=== PATIENT | female | born 1930 | race Caucasian/White ===

== ENCOUNTER → 2016-11-30 | Outpatient (CLI) | payer OTHER, BC ==
[~2016-11-30] MED LIST: ANAS1TAB19 PO; CALC-279 PO; DILT300C29 PO; DVN80125 PO; PRAVASTATIN PO; PRLSR20 PO; Paroxetine PO; VITAMIN D3 PO; lorazepam PO
[2016-11-30 13:17] LABS: BLOOD UREA NITROGEN 14 mg/dl (7-18); BUN/CREATININE RATIO 14.9 (10-20); CARBON DIOXIDE 27 mmol/L (21-32); CHLORIDE 102 mmol/L (98-107); CREATININE 0.96 mg/dl (0.60-1.20); GLUCOSE 130 mg/dl (70-99); POTASSIUM 3.6 mmol/L (3.5-5.1); SODIUM 140 mmol/L (136-145)
[2016-11-30 15:35] LABS: CHOLESTEROL/HDL RATIO 5.8
== END | disposition home or self-care (01) ==
LOC: C.LABMFLN 08:02
PROVIDERS: ATTEND Family Medicine
DX: E78.00 Pure hypercholesterolemia, unspecified (principal); R33.9 Retention of urine, unspecified

== ENCOUNTER → 2017-05-14 | Outpatient (CLI) | payer OTHER ==
[2017-05-14 13:21] LABS: BASO % 0.7 %; BASO ABS # 0.06 K/uL (0-0.2); COMPLETE YES; EOS % 4.7 %; HEMATOCRIT 43.8 % (37-47); IG% 0.2 %; LYMPH % 24.2 %; LYMPH ABS # 1.94 K/uL (1.2-3.4); MEAN CELL VOLUME 85.5 fL (80-100); MEAN CORPUSCULAR HEMOGLOBIN 29.3 pg (25-34); MEAN CORPUSCULAR HGB CONC 34.2 g/dl (32-36); MEAN PLATELET VOLUME 9.4 fL (7.4-10.4); MONO % 11.6 %; NEUT % 58.6 %; PLATELET COUNT 271 K/uL (130-400); RED BLOOD COUNT 5.12 M/uL (4.2-5.4); WHITE BLOOD COUNT 8.01 K/uL (4.8-10.8)
[2017-05-14 13:32] LABS: ALT/SGPT 18 U/L (12-78); AST/SGOT 12 U/L (15-37); BLOOD UREA NITROGEN 14 mg/dl (7-18); BUN/CREATININE RATIO 15.6 (10-20); CARBON DIOXIDE 28 mmol/L (21-32); CHLORIDE 101 mmol/L (98-107); CREATININE 0.87 mg/dl (0.60-1.20); GLUCOSE 132 mg/dl (70-99); POTASSIUM 3.7 mmol/L (3.5-5.1); SODIUM 138 mmol/L (136-145)
[2017-05-14 13:35] LABS: ALB/GLOB RATIO 0.9 (0.9-2); ALKALINE PHOSPHATASE 57 U/L (45-117)
== END | disposition home or self-care (01) ==
LOC: C.LABMFLN 08:36
PROVIDERS: ATTEND Nurse Practitioner Family
DX: C50.112 Malignant neoplasm of central portion of left female breast (principal)

== ENCOUNTER → 2017-11-19 | Outpatient (CLI) | payer OTHER ==
[2017-11-19 12:41] LABS: BASO % 1.2 %; BASO ABS # 0.08 K/uL (0-0.2); COMPLETE YES; EOS % 5.5 %; EOS ABS # 0.36 K/uL (0-0.5); HEMATOCRIT 43.2 % (37-47); HEMOGLOBIN 14.6 g/dL (12.0-16.0); IG# 0.02 K/uL (0.00-0.02); IG% 0.3 %; LYMPH % 29.9 %; LYMPH ABS # 1.94 K/uL (1.2-3.4); MEAN CELL VOLUME 88.5 fL (80-100); MEAN CORPUSCULAR HEMOGLOBIN 29.9 pg (25-34); MEAN CORPUSCULAR HGB CONC 33.8 g/dl (32-36); MEAN PLATELET VOLUME 10.1 fL (7.4-10.4); MONO % 11.7 %; MONO ABS # 0.76 K/uL (0.11-0.59); NEUT % 51.4 %; NEUT ABS # 3.33 K/uL (1.4-6.5); PLATELET COUNT 248 K/uL (130-400); RED BLOOD COUNT 4.88 M/uL (4.2-5.4); RED CELL DISTRIBUTION WIDTH CV 13.7 % (11.5-14.5); RED CELL DISTRIBUTION WIDTH SD 44.7 fL (36.4-46.3); WHITE BLOOD COUNT 6.49 K/uL (4.8-10.8)
[2017-11-19 12:58] LABS: LDH** 156 U/L (84-246)
[2017-11-19 13:12] LABS: GLUCOSE 121 mg/dl (70-99)
[2017-11-19 13:12] LABS: ALBUMIN 3.8 gm/dl (3.4-5.0); AST/SGOT 17 U/L (15-37); BLOOD UREA NITROGEN 13 mg/dl (7-18); BUN/CREATININE RATIO 14.5 (10-20); CALCIUM 9.5 mg/dl (8.5-10.1); CARBON DIOXIDE 28 mmol/L (21-32); CHLORIDE 102 mmol/L (98-107); CREATININE 0.88 mg/dl (0.60-1.20); EstGFR CKD-E AfrAm 69.9; EstGFR CKD-E NON AfrAm 60.3; POTASSIUM 3.5 mmol/L (3.5-5.1); SODIUM 136 mmol/L (136-145)
[2017-11-19 13:14] LABS: ALB/GLOB RATIO 0.9 (0.9-2); ALKALINE PHOSPHATASE 51 U/L (45-117); ALT/SGPT 21 U/L (12-78)
== END | disposition home or self-care (01) ==
LOC: C.LABMFLN 08:13
DX: C50.112 Malignant neoplasm of central portion of left female breast (principal)

== ENCOUNTER → 2018-01-10 | Outpatient (CLI) | payer OTHER ==
[2018-01-10 16:17] LABS: ALT/SGPT 21 U/L (12-78); CHOLESTEROL 162 mg/dl (0-200); LDL CHOLESTEROL (DIRECT) 116 mg/dl
== END | disposition home or self-care (01) ==
LOC: C.LABMFLN 09:16
PROVIDERS: ATTEND Family Medicine
DX: E78.00 Pure hypercholesterolemia, unspecified (principal)

== ENCOUNTER 2020-08-20 09:23 | Inpatient (IN) ==
--- NOTE | 2020-08-09 14:59 | PAT Medication Instructions ---
Medication Instructions Date of Service August 09, 2020 Home Medications Medication Instructions Recorded miscellaneous medical supply #4 ea 06/08/19 cholecalciferol (vitamin D3) 50 2,000 unit PO QAM #90 cap 07/13/19 mcg (2,000 unit) capsule anastrozole 1 mg tablet 1 mg PO HS #90 tab 01/15/20 diltiazem HCl 300 mg 300 mg PO QAM #90 cap 04/23/20 capsule,extended release 24 hr lorazepam 0.5 mg tablet 0.5 mg PO BID PRN #60 tab 06/13/20 breast prosthesis left #1 ea 06/17/20 miscellaneous medical supply 1 ea MISCELLANEOUS ONCE #1 ea 06/17/20 atorvastatin 10 mg tablet 10 mg PO QAM #90 tab 08/09/20 cholecalciferol (vitamin D3) 50 mcg (2,000 unit) capsule 2,000 unit PO QAM anastrozole 1 mg tablet 1 mg PO HS diltiazem HCl 300 mg capsule,extended release 24 hr 300 mg PO QAM lorazepam 0.5 mg tablet 0.5 mg PO BID PRN omeprazole 20 mg PO QAM paroxetine HCl 10 mg PO QPM valsartan 40 mg PO QAM atorvastatin 10 mg tablet 10 mg PO QAM ASK your prescriber and surgeon anastrozole 1 mg tablet 1 mg PO HS DO NOT take the morning of surgery cholecalciferol (vitamin D3) 50 mcg (2,000 unit) capsule 2,000 unit PO QAM valsartan 40 mg PO QAM Take morning of surgery With a small sip of water, OTHERWISE NOTHING TO EAT OR DRINK AFTER MIDNIGHT: diltiazem HCl 300 mg capsule,extended release 24 hr 300 mg PO QAM lorazepam 0.5 mg tablet 0.5 mg PO BID PRN (if needed) omeprazole 20 mg PO QAM Take evening before surgery lorazepam 0.5 mg tablet 0.5 mg PO BID PRN (if needed) paroxetine HCl 10 mg PO QPM Other Notes If you have any questions please call us at [phone] or [phone] or [phone] or [phone]
--- NOTE | 2020-08-14 13:39 | Anesthesiology Consultation ---
Date of Service August 14, 2020 Assessment & Plan (1) Encounter for pre-operative examination: - Per assessment on negative: Travel screen negative. No known COVID-19 positive contacts or current COVID-19 related symptoms. Surgeon arranging preop COVID testing (done 08/[address] Florence's office). Awaiting results. - Vascular office visit: 08/06/20: "Patient does appear to have significant claudication in the right hip and thigh, consistent with her CTA findings of right common iliac artery severe stenosis and common femoral artery stenosis.. She does not have rest pain, discoloration, or ulcerations of her feet or toes.. recommends that patient consider undergoing a right common femoral artery endarterectomy, as well as bilateral common iliac artery stenting in the operating room." - LUE limb restriction: s/p left mastectomy - Shellfish allergy: Patient states that Dr. Florence if having patient do prednisone/benadryl pretreatment prior to surgery d/t hx shellfish allergy. - Preop EKG: SB with marked sinus arrhythmia with first degree AVB with junctional escape complexes at 47bpm, LAD, iRBBB, NS TWA. Asymptomatic. Not on beta tonia. Case reviewed with Dr. Joiner. He feels that nothing further needed prior to surgery. To monitor vitals perioperatively as directed by anesthesiologist discretion AM DOS. Chart Review Chart Review: Acceptable Risk for Surgery (pending evaluation AM DOS) and Patient seen in Pre Admission Testing Teaching & Discussion Pre-Anesthesia Teaching/Discussion Notes: Instructed NPO after midnight before surgery,except medications with 15 cc of water. Medication instructions provided according to the PAT guidelines. History Surgery Operation Date: 08/20/20 07:30 Proposed Procedures p Right Common Femoral Endarterectomy and Bilateral Iliac Artery Stenting, Possible Femoral to Femoral Bypass - Js Florence MD Height/Weight Height: 5 ft 1 in Weight: 63.8 kg Allergies Allergy/AdvReac Type Severity Reaction Status Date / Time Sulfa (Sulfonamide Allergy Intermediate Rash Verified 08/07/20 13:49 Antibiotics) shellfish derived Allergy Unknown Hives Verified 08/07/20 13:49 cod Allergy Unknown Uncoded 08/07/20 13:49 Medications Home Medications Medication Instructions Recorded Confirmed Last Taken miscellaneous medical supply #4 ea 06/08/19 07/31/20 Unknown cholecalciferol (vitamin D3) 50 2,000 unit PO QAM #90 cap 07/13/19 08/07/20 Unknown mcg (2,000 unit) capsule anastrozole 1 mg tablet 1 mg PO HS #90 tab 01/15/20 08/07/20 Unknown diltiazem HCl 300 mg 300 mg PO QAM #90 cap 04/23/20 08/07/20 Unknown capsule,extended release 24 hr lorazepam 0.5 mg tablet 0.5 mg PO BID PRN #60 tab 06/13/20 08/07/20 Unknown breast prosthesis left #1 ea 06/17/20 07/31/20 Unknown miscellaneous medical supply 1 ea MISCELLANEOUS ONCE #1 ea 06/17/20 08/07/20 Unknown omeprazole 20 mg PO QAM 08/07/20 08/07/20 Unknown paroxetine HCl 10 mg PO QPM 08/07/20 08/07/20 Unknown valsartan 40 mg PO QAM 08/07/20 08/07/20 Unknown atorvastatin 10 mg tablet 10 mg PO QAM #90 tab 08/09/20 Unknown Past Medical History Medical History Anxiety Degenerative disc disease GERD (gastroesophageal reflux disease) Hearing deficit right ear deafness History of thyroid nodule Hx of breast cancer 2013 s/p left mastectomy, on Armidex Hyperlipidemia Hypertension PAD (peripheral artery disease) iliac and femoral artery stenosis Prolapsed bladder Sciatica Splenic lesion incidental finding on recent CT; pt refuses further work up Stenosis of femoral artery Weakness of right lower extremity Exercise / Class Metabolic Activity III < 4 Walking/Shop/Light housework Past Family History Family History Father Cardiovascular disease Sister Breast cancer Other No family history of adverse response to anesthesia Past Surgical History Surgical History History of arthroscopy LEFT KNEE History of cataract surgery History of cholecystectomy History of cochlear implant Rt History of partial thyroidectomy History of total abdominal hysterectomy and bilateral salpingo-oophorectomy Hx of colonoscopy Hx of left mastectomy Hx of mastoidectomy RIGHT Past Anesthesia History No Hx of Anesthesia Complications and No Family Hx of Anesthesia Complications History of PONV No Hx of PONV and Hx of Motion Sickness (remote hx) Social History Smoking Status: Never smoker Do You Dip or Chew Tobacco: No Hx Alcohol Use: Yes Alcohol type: wine alcohol intake frequency: a few times a week Hx Substance Use: No substance use type: does not use Review of Systems Patient denies chest pain, shortness of breath, fever, chiils, cough, wheezing, palpitations. Physical Exam Vital Signs VITALS BP 152/76 P 53 TEMP 97.9 SP02 96%RA RESP 16 PHYSICAL Full neck and c-spine range of motion. Full TMJ range of motion. TMD 3 finger breaths Mallampati Score 2 Dentition: intact Lungs: clear throughout to auscultation Cardiac: regular rate and rhythm, no murmurs noted Spine: normal Carotid arteries: negative bruit Extremities: no edema Testing Laboratory Results 08/14/20 14:45 08/14/20 14:45 PT 11.1 Seconds (9.0-12.0) 08/14/20 14:45 INR 1.1 (0.9-1.1) 08/14/20 14:45 APTT 25.0 Seconds (21.0-31.0) 08/14/20 14:45 Blood Type A Negative 08/14/20 14:45 Antibody Screen NEGATIVE 08/14/20 14:45 Electrocardiogram Date: 08/14/20 SB with marked sinus arrhythmia with first degree AVB with junctional escape complexes at 47bpm. LAD. iRBBB. NS TWA. Chest X-Ray Date: 08/14/20 FINDINGS: Surgical clips project over the left lateral chest/axillary region. IMPRESSION: No active disease in the chest.
--- NOTE | 2020-08-14 15:01 | XRay Report ---
XR chest Pre-admission PA/Lat CLINICAL HISTORY: Preoperative chest COMPARISON STUDY: No previous studies for comparison. FINDINGS: Surgical clips project over the left lateral chest/axillary region.[ IMPRESSION: No active disease in the chest. ACT 112: Negative or not required by law. Electronically signed by: Wilfrido Choi M.D. 08/14/2020 2:59 PM
[2020-08-14 15:40] LABS: Basophils # (auto) 0.05 K/uL (0-0.2); Basophils % (auto) 0.6 %; Eosinophils # (auto) 0.25 K/uL (0-0.5); Eosinophils % (auto) 2.8 %; Hematocrit (blood only) 43.1 % (37-47); Hemoglobin 14.4 g/dL (12.0-16.0); Immature Granulocytes # (auto) 0.02 K/uL (0.00-0.02); Immature Granulocytes % (auto) 0.2 %; Lymphocytes # (auto) 2.77 K/uL (1.2-3.4); Lymphocytes % (auto) 31.4 %; Mean Corpuscular Hgb Conc 33.4 g/dL (32-36); Mean Corpuscular Volume 86.7 fL (80-100); Mean Platelet Volume 9.7 fL (7.4-10.4); Monocytes # (auto) 0.83 K/uL (0.11-0.59); Monocytes % (auto) 9.4 %; Neutrophils % (auto) 55.6 %; Platelet Count 250 K/uL (130-400); RDW Coefficient of Variation 13.8 % (11.5-14.5); RDW Standard Deviation 43.7 fL (36.4-46.3); Red Blood Count 4.97 M/uL (4.2-5.4); White Blood Count 8.82 K/uL (4.8-10.8)
[2020-08-14 15:53] LABS: BUN Creatinine Ratio 17.1 (10-20); Calcium 9.1 mg/dl (8.5-10.1); Creatinine Clr Calc Pharmacy 40.4 ml/min; Est GFR (African American) 72.4; Est GFR (Non-African American) 62.5; INR 1.1 (0.9-1.1); Partial Thromboplastin Ratio 0.9; Potassium 3.9 mmol/L (3.5-5.1); Prothrombin Time 11.1 Seconds (9.0-12.0)
--- NOTE | 2020-08-15 05:41 | Electrocardiogram Report ---
Test Reason : Blood Pressure : / mmHG Vent. Rate : 047 BPM Atrial Rate : 057 BPM P-R Int : 244 ms QRS Dur : 104 ms QT Int : 466 ms P-R-T Axes : 074 -42 057 degrees QTc Int : 412 ms Sinus bradycardia with marked sinus arrhythmia with 1st degree A-V block with junctional escape compl exes Left axis deviation Incomplete right bundle branch block Nonspecific T wave abnormality Abnormal ECG No previous ECGs available Confirmed by Bishnu Cooley ([id number]) on 08/15/2020 5:40:59 AM Referred By: Js Florence Confirmed By:Bishnu Cooley
--- NOTE | 2020-08-20 07:47 | History & Physical Report ---
Date of Service August 20, 2020 History of Present Illness Chief Complaint: Bilateral iliac artery stenoses and right common femoral artery stenosis. Primary Care Provider: Jasvir Dhaliwal MD * Final Report * [facility] OUTPATIENT NOTE Name: JOIE REA Patient Number: [id number] : 1930 Date of Service: 08/05/2020 Chief Complaint: _Consultation for right leg PAD HPI: _Mrs. Rea is an elderly female who presents to Dr. Florence's vascular surgery clinic today in consultation for right buttock hip and thigh tiredness/achiness which occurs with ambulation. Patient states that she could possibly walk 50 yards on a flat surface, significantly less if going up and elevation or going up stairs. She states that she first noticed symptoms about 6 months ago, but that they became significantly worse about 2 months ago. At that point she sought an appointment with her primary care provider who sent her for a CT scan which demonstrated severe atherosclerotic disease in the aortoiliac and femoral arteries. Patient denies any history of peripheral arterial disease. She denies any rest pain, nonhealing wounds or ulcers, discoloration of the feet or toes. She does admit some chronic numbness in the feet from neuropathy but this is been present for many years. She denies headache, fever, chills, chest pain, shortness of breath, abdominal pain, nausea, vomiting, other complaints. No history of DVT/PE, known coronary artery disease, heart arrhythmia, myocardial infarction. Does not see a sports manager. Current Home Meds: (Last Updated 08/05 16:14) LORazepam (LORazepam 0.5 mg oral tablet) 0.5 mg PO bid PRN: as needed for anxiety PARoxetine (PARoxetine 20 mg oral tablet) 10 mg PO Daily acetaminophen (acetaminophen 650 mg oral tablet, extended release) 1,300 mg PO q12h PRN: pain - mild anastrozole (anastrozole 1 mg oral tablet) 1 mg PO qhs atorvastatin (atorvastatin 10 mg oral tablet) 10 mg PO Daily cholecalciferol (cholecalciferol 2000 intl units (50 mcg) oral capsule) 50 mcg PO Daily dilTIAZem (dilTIAZem 300 mg/24 hours oral capsule, extended release) 300 mg PO Daily omeprazole (omeprazole 20 mg oral delayed release capsule) 20 mg PO Daily predniSONE (predniSONE 50 mg oral tablet) 1 tab PO q8h Start 12 hr before procedure/study valsartan (valsartan 40 mg oral tablet) 40 mg PO Daily Allergies and Sensitivities: Allergy Not found in Search(Hives) sulfa drugs(Hives) shellfish(Rash) Past Medical History: Problems: Atherosclerosis Hx of breast cancer Female bladder prolapse Hypertension Hyperlipidemia Hearing deficit GERD (gastroesophageal reflux disease) Anxiety Surgical history: Positive for thyroid surgery in 1977, left mastectomy 2013, hernia repair 1977, breast biopsy 2013, hysterectomy and bilateral salpingo- oophorectomy, tonsillectomy 1942, cholecystectomy 1987, cataract surgery, mastoidectomy, colonoscopy family history:Positive for coronary disease in her father, breast cancer in her sister. Social history: Occasional wine drinker, never smoker, negative illicit drug use. She lives with her spouse OBJECTIVE Vitals: Last Updated 08/05/20 15:13 Date Temp BP Location Pulse RR SpO2 Pain 08/05/20 146/72 Right Arm 79 97 08/05/20 0 Vital Signs are the last 3 within [facility]. No Orthostatic Data Available Height and Weight: Last Updated 08/05/20 15:13 Date BMI Wt(kg) Wt(lb) Method Ht(cm) (ft-in) Method 08/05/20 64 141 Standing Scale Heights and Weights are the last 3 within [facility]. Physical Exam Constitutional: In general patient is a healthy for age appearing well-nourished well-developed elderly female no distress. She ambulates without assistance. She is alert and oriented without any focal deficits. Her head is normocephalic and atraumatic. Eyes are EOMI. ENMT exam demonstrates straits some mild hearing loss. Neck is supple nontender with midline trachea. Heart demonstrates a regular rate and rhythm with occasional PVCs. Lungs are clear bilaterally with good aeration. Abdomen is soft and nontender with normoactive bowel sounds in all 4 quadrants without guarding or rebound. No pulsatile masses appreciable. Femoral pulses are +1 in the left, nonpalpable on the right. Left DP pulse is +2, left PT pulses +1. Right foot distal pulses are nonpalpable. Brisk capillary refill on the left, capillary refill at 5 seconds on the right. Right toes are cooler than the left. Neurologically she is gr ossly intact cranial nerves are grossly intact sensation ASSESSMENT: _ PLAN: _ 1 ) _aortoiliac occlusive disease, with right thigh claudication Patient does appear to have significant claudication in the right hip and thigh, consistent with her CTA findings of right common iliac artery severe stenosis and common femoral artery stenosis. It is likely that the stenosis/claudication in her right hip and buttock keeps her from ambulating far enough to claudicate in her left thigh and buttock. She does not have rest pain, discoloration, or ulcerations of her feet or toes. After discussion with Dr. Florence who reviewed the patient's CTA at length, he recommends that patient consider undergoing a right common femoral artery endarterectomy, as well as bilateral common iliac artery stenting in the operating room. The procedure was discussed at length with the patient, her was present as well. She elects to proceed. This will occur in the next few weeks at the patient's convenience. She is advised to call with any other questions. 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 [address] [place] [address] LM Result Type: [facility] Outpt Note Date of Service: August 05, 2020 16:30 EDT Authorization Status: Final Author or Import Date: PARTH Taylor Lynn on August 05, 2020 16:41 EDT Verified By: MD Naman, Js Gomez on August 06, 2020 14:25 EDT Encounter info: [id number], [place] [address], Clinic, 08/05/2020 - 08/05/2020 Allergies Allergy/AdvReac Type Severity Reaction Status Date / Time Sulfa (Sulfonamide Allergy Intermediate Rash Verified 08/07/20 13:49 Antibiotics) shellfish derived Allergy Unknown Hives Verified 08/07/20 13:49 cod Allergy Unknown Uncoded 08/07/20 13:49 Home Medications Home Medications Medication Instructions Recorded Confirmed Type miscellaneous medical supply #4 ea 06/08/19 07/31/20 Rx cholecalciferol (vitamin D3) 50 2,000 unit PO QAM #90 cap 07/13/19 08/07/20 Rx mcg (2,000 unit) capsule anastrozole 1 mg tablet 1 mg PO HS #90 tab 01/15/20 08/07/20 Rx diltiazem HCl 300 mg 300 mg PO QAM #90 cap 04/23/20 08/07/20 Rx capsule,extended release 24 hr lorazepam 0.5 mg tablet 0.5 mg PO BID PRN #60 tab 06/13/20 08/07/20 Rx breast prosthesis left #1 ea 06/17/20 07/31/20 Rx miscellaneous medical supply 1 ea MISCELLANEOUS ONCE #1 ea 06/17/20 08/07/20 Rx omeprazole 20 mg PO QAM 08/07/20 08/07/20 History paroxetine HCl 10 mg PO QPM 08/07/20 08/07/20 History valsartan 40 mg PO QAM 08/07/20 08/07/20 History atorvastatin 10 mg tablet 10 mg PO QAM #90 tab 08/09/20 Rx Past Med/Surg History Medical History Anxiety Degenerative disc disease GERD (gastroesophageal reflux disease) Hearing deficit right ear deafness History of thyroid nodule Hx of breast cancer 2014 s/p left mastectomy, on Armidex Hyperlipidemia Hypertension PAD (peripheral artery disease) iliac and femoral artery stenosis Prolapsed bladder Sciatica Splenic lesion incidental finding on recent CT; pt refuses further work up Stenosis of femoral artery Weakness of right lower extremity Surgical History History of arthroscopy LEFT KNEE History of cataract surgery History of cholecystectomy History of cochlear implant Rt History of partial thyroidectomy History of total abdominal hysterectomy and bilateral salpingo-oophorectomy Hx of colonoscopy Hx of left mastectomy Hx of mastoidectomy RIGHT Family History Father Cardiovascular disease Sister Breast cancer Other No family history of adverse response to anesthesia Social History Smoking Status: Never smoker Second Hand Exposure: Yes (50 years ago); Do You Dip or Chew Tobacco: No; Hx Alcohol Use: Yes Alcohol type: wine Hx Substance Use: No Preferred Language: Macedonian Communication Ability: Effective Custom Protection Officer Required: No Beliefs That Will Affect Care: Rastafari Rastafari Beliefs: Synagogue Current Living Situation: Spouse Feels Safe at Home: Yes Safety Concerns: Feels Safe At This Time Assistive Devices: Glasses and Hearing Aid - Left Review of Systems All systems reviewed & are unremarkable except as noted in HPI & below
[~2020-08-20 09:23] MED LIST changes: -ANAS1TAB19 PO; -CALC-279 PO; -DILT300C29 PO; -DVN80125 PO; -PRAVASTATIN PO; -PRLSR20 PO; -Paroxetine PO; +SODIUM CHLORIDE 0.9% 1,000 ML IV SCH; -VITAMIN D3 PO; +[UNRECOGNIZED DRUG - REMARK] SCH; +ceFAZolin 1000MG 1,000 MG/7.5 ML SYR IV SCH; +diphenhydrAMINE Capsule 25 MG CAP PO SCH; -lorazepam PO
[2020-08-20] MEDS ORDERED: FAMOTIDINE 20 MG in SYRINGE 3 ML IV SCH (10:00)
[2020-08-20 10:28] LABS: BUN Creatinine Ratio 15.9 (10-20); Calcium 9.3 mg/dl (8.5-10.1); Creatinine Clr Calc Pharmacy 29.4 ml/min; Est GFR (African American) 49.5; Est GFR (Non-African American) 42.7; Potassium 3.6 mmol/L (3.5-5.1)
--- NOTE | 2020-08-20 12:12 | History & Physical Bridge Note ---
Date of Service August 20, 2020 History & Physical Bridge Note I have examined the patient, reviewed the History & Physical and in the interval since the performance of the History & Physical I have noted the following changes of clinical significance: no changes noted
[2020-08-20] MEDS ORDERED: NEOSTIGMINE METHYLSULFATE 5 MG/5 ML SYR ONE (12:27)
[2020-08-20] MEDS ORDERED: CISATRACURIUM BESYLATE IV SOLN 2 MG/ML 10 ML VIAL IV ONE (12:27)
[2020-08-20] MEDS ORDERED: ONDANSETRON INJ 2 MG/ML 2 ML VIAL ONE (12:27)
[2020-08-20] MEDS ORDERED: fentaNYL citrate 100 MCG/2 ML VIAL ONE ×2 (12:27→15:37)
[2020-08-20] MEDS ORDERED: GLYCOPYRROLATE 0.2 MG/ML VIAL ONE (12:27)
[2020-08-20] MEDS ORDERED: LIDOCAINE HCL 2% 2 ML VIAL/AMP(20MG/ML) INFIL ONE (12:27)
[2020-08-20] MEDS ORDERED: PROPOFOL IV EMULSION 10 MG/ML 20 ML VIAL IV ONE (12:27)
[2020-08-20] MEDS ORDERED: PHENYLEPHRINE HCL 10 MG/ML VIAL ONE (12:27)
[2020-08-20] MEDS ORDERED: EPINEPHrine INJ 1 MG/ML AMP ONE (12:55)
[2020-08-20] MEDS ORDERED: HEPARIN (PORCINE) 1000 UNIT/ML 10 ML (CATH LAB USE ONLY) ONE (12:55)
[2020-08-20] MEDS ORDERED: GELATIN SPONGE SZ 100 ONE (12:56)
[2020-08-20] MEDS ORDERED: BUPIVACAINE 0.5 % 5 MG/1 ML MPF 30ML VIAL ONE (12:56)
[2020-08-20] MEDS ORDERED: THROMBIN FOR SOLN 20000 UNIT KIT ONE (12:56)
[2020-08-20] MEDS ORDERED: LIDOCAINE HCL 1% 20 ML VIAL ONE (12:56)
[2020-08-20] MEDS ORDERED: HYDROCORTISONE SOD SUCCINATE 100 MG/2 ML VIAL ONE (13:21)
[2020-08-20] MEDS ORDERED: HYDROCORTISONE SOD 100 MG in SYRINGE 0 ML IV ONE (13:45)
[2020-08-20] MEDS ORDERED: VISIPAQUE IV PRN (14:04)
[2020-08-20] MEDS ORDERED: ROCURONIUM BROMIDE 10 MG/ML 5 ML VIAL IV ONE (16:13)
[2020-08-20] MEDS ORDERED: HEPARIN SOD (PORCINE) 1000 UNIT/ML 10 ML VIAL ONE (16:13)
[2020-08-20] MEDS ORDERED: ePHEDrine sulfate 50 MG/ML AMP ONE (17:08)
[2020-08-20] MEDS ORDERED: PROTAMINE SULFATE 10 MG/ML 5 ML VIAL ONE (18:36)
[2020-08-20] MEDS ORDERED: LABETALOL HCL IV 5 MG/ML 20ML IV PRN (19:12)
[2020-08-20] MEDS ORDERED: PROMETHAZINE HCL 12.5 MG in SODIUM CHLORIDE 0.9% 50 ML IV PRN (19:12)
[2020-08-20] MEDS ORDERED: NALOXONE HCL 0.4 MG/1 ML VIAL/CARP IV PRN (19:12)
[2020-08-20] MEDS ORDERED: ePHEDrine sulfate 50 MG/ML AMP IV PRN (19:12)
[2020-08-20] MEDS ORDERED: ONDANSETRON INJ 2 MG/ML 2 ML VIAL IV PRN ×2 (19:12→20:16)
[2020-08-20] MEDS ORDERED: ATROPINE SULFATE 0.1 MG/ML 10ML SYR IV PRN (19:12)
[2020-08-20] MEDS ORDERED: fentaNYL citrate 100 MCG/2 ML VIAL IV PRN (19:12)
[2020-08-20] MEDS ORDERED: FLUMAZENIL 0.1 MG/1 ML 10 ML VIAL IV PRN (19:12)
--- NOTE | 2020-08-20 19:12 | Post Operative Brief Note ---
Immediate Post Op Note v1 Date of Surgery August 20, 2020 Pre & Post Diagnosis Operation Date: 08/20/20 11:10 Pre-Op Diagnosis: Iliac and Femoral Artery Stenosis Post-Op Diagnosis: Iliac and Femoral Artery Stenosis I identified the patient and participated in the time-out.: Yes Procedure Operation Date: 08/20/20 11:10 Actual Procedures p Bilateral Cannulation of Aorta, Aortagram, Stenting of Left Common Iliac Artery and Distal Aorta, Bilateral Common Femoral Artery Endarterectomy with Bovine Patch, Cross Femoral Bypass Left to Right(Right) - Js Florence MD Surgeon Js Florence MD Client Care Coordinator Geronimo,PAC Estimated Blood Loss 300 Findings Consistent with Post-Op Diagnosis Drains Pond Catheter Anesthesia Type General Complications none Disposition Accompanied Patient To Recovery: No Disposition: Recovery Room
--- NOTE | 2020-08-20 19:40 | Anesthesiology Progress Note ---
Date of Service August 20, 2020 Anesthesia Post Procedure Vital Signs Vital Signs: Temp Pulse Pulse Resp BP Pulse Ox 08/20/20 19:26 52 L 15 114/80 96 08/20/20 19:10 36.3 C L 64 16 127/68 96 08/20/20 10:17 36.7 C 88 20 158/83 H 96 Transfer of Care Handoff Completed per policy Notes Mental Status: alert / awake / arousable Patient Amnestic to Procedure: Yes Nausea / Vomiting: adequately controlled Pain: adequately controlled Airway Patency, RR, SpO2: stable & adequate BP & HR: stable & adequate Hydration State: stable & adequate Anesthetic Complications: no major complications apparent
[2020-08-20 20:01] LABS: Basophils # (auto) 0.01 K/uL (0-0.2); Basophils % (auto) 0.1 %; Hematocrit (blood only) 36.3 % (37-47); Hemoglobin 12.1 g/dL (12.0-16.0); Immature Granulocytes # (auto) 0.05 K/uL (0.00-0.02); Immature Granulocytes % (auto) 0.3 %; Lymphocytes # (auto) 1.17 K/uL (1.2-3.4); Lymphocytes % (auto) 6.9 %; Mean Corpuscular Hemoglobin 29.1 pg (25-34); Mean Corpuscular Volume 87.3 fL (80-100); Mean Platelet Volume 9.3 fL (7.4-10.4); Monocytes # (auto) 1.02 K/uL (0.11-0.59); Neutrophils # (auto) 14.62 K/uL (1.4-6.5); Neutrophils % (auto) 86.7 %; Platelet Count 245 K/uL (130-400); RDW Coefficient of Variation 13.8 % (11.5-14.5); RDW Standard Deviation 44.3 fL (36.4-46.3); Red Blood Count 4.16 M/uL (4.2-5.4); White Blood Count 16.87 K/uL (4.8-10.8)
[2020-08-20 20:15] LABS: Mean Corpuscular Hgb Conc 33.3 g/dL (32-36)
[2020-08-20] MEDS ORDERED: D5W AND 1/2NSS 1,000 ML IV SCH (20:16)
[2020-08-20] MEDS ORDERED: LORazepam 0.5 MG TAB PO PRN (20:16)
[2020-08-20] MEDS ORDERED: oxyCODONE/ACETAMINOPHEN 5mg/325mg TAB PO PRN (20:16)
[2020-08-20] MEDS ORDERED: predniSONE 50 MG TAB PO SCH (20:16)
[2020-08-20] MEDS ORDERED: MoRPHine SULFATE 4 MG/ML 1 ML CARP\\VIAL IV PRN (20:16)
[2020-08-20 20:25] LABS: BUN Creatinine Ratio 17.3 (10-20); Calcium 8.4 mg/dl (8.5-10.1); Creatinine Clr Calc Pharmacy 36.4 ml/min; Est GFR (Non-African American) 55.3; Potassium 3.5 mmol/L (3.5-5.1)
[2020-08-20] MEDS: SODIUM CHLORIDE 0.9% 1000ML 1,000 ML IV SCH (21:00)
--- NOTE | 2020-08-20 21:17 | Critical Care Consultation ---
Date of Consultation August 20, 2020 Assessment & Plan (1) Admitted to intensive care unit: Reason Critically Ill: 89-year-old female status post vascular intervention requiring close hemodynamic monitoring status post intervention. NEURO - * CAM ICU: NEGATIVE * Pain: P.o./IV narcotics as needed. CARDIAC/VASCULAR - * Peripheral vascular disease status post bilateral cannulation of aorta, aortogram, stenting of left common iliac artery and distal aorta, bilateral common femoral artery endarterectomy with bovine patch, cross femoral bypass left to right. * EBL 300 mL * Patient with range of motion of the lower extremities and sensation. * Dopplerable pulses. * Continue with frequent neuro checks and pulse checks. * Continue per vascular surgery recommendations. * Monitor on telemetry. RESPIRATORY - * No history of pulmonary disease. * Saturating well on nasal cannula. GI/NUTRITION - * Progress diet as tolerated. RENAL/LYTES - * No significant electrolyte derangements. * IVF: NSS@125 mL's per hour. - * Pond in place - Strict I&Os. ENDO - * History of diabetes. * BSGs per unit protocol. ISS --> gtt per unit policy. HEME - * Stable H&H. * Monitor for signs/symptoms of bleeding status post vascular intervention. ID - * No concerns for infectious ideology at this time. LINES/IV ACCESS - * PIVs x2 * Opnd DVT PROPHYLAXIS - * Defer to vascular surgery. * SCDs I have personally spent 35 minutes of critical care time in the direct management of this patient. This is a life/limb threatening event. This includes time spent evaluating patient, direct bedside care, chart review, placing orders, interpretation of diagnostic studies, discussion with consultants, patient, and family members, as well as other required patient management activities. This time is exclusive of all separately billable procedures, and teaching time and separate from and in addition to any other critical care service time. Thank you for allowing us to participate in the care of this patient. Please refer to my attending physician's documentation for any further recommendations. (2) S/P vascular surgery: (3) Stenosis of right femoral artery: (4) Claudication of right lower extremity: (5) Diabetes mellitus: (6) Benign essential hypertension: (7) Anxiety: (8) Hypercholesterolemia: History of Present Illness Attending Physician: Js Florence MD History of Present Illness Patient is a 89-year-old female with significant past medical history of diabetes, hypertension, hyperlipidemia, anxiety, and history of breast cancer. Patient has been having claudication to the RIGHT lower extremity. She had outpatient evaluation performed which demonstrated significant peripheral vascular disease including iliac and femoral artery stenoses. Patient underwent elective bilateral cannulation of aorta, aortogram, stenting of left common iliac artery and distal aorta, bilateral common femoral artery endarterectomy with bovine patch, cross femoral bypass left to right. Lengthy procedure with EBL of 300 mL. No significant intraoperative issues reported. Upon arrival in the ICU, the patient is awake, alert, and oriented. She complains of some mild discomfort in her groin region. Otherwise, the patient reports feeling well. She denies any headaches, dizziness, lightheadedness, chest pain, palpitations, shortness of breath, nausea, vomiting, abdominal pain, or numbness/weakness to the extremities. Allergies Allergy/AdvReac Type Severity Reaction Status Date / Time Sulfa (Sulfonamide Allergy Intermediate Rash Verified 08/20/20 10:11 Antibiotics) shellfish derived Allergy Unknown Hives (COD) Verified 08/20/20 22:18 Home Medications Home Medications Medication Instructions Recorded Confirmed Type miscellaneous medical supply #4 ea 06/08/19 07/31/20 Rx cholecalciferol (vitamin D3) 50 2,000 unit PO QAM #90 cap 07/13/19 08/07/20 Rx mcg (2,000 unit) capsule anastrozole 1 mg tablet 1 mg PO HS #90 tab 01/15/20 08/20/20 Rx diltiazem HCl 300 mg 300 mg PO QAM #90 cap 04/23/20 08/20/20 Rx capsule,extended release 24 hr lorazepam 0.5 mg tablet 0.5 mg PO BID PRN #60 tab 06/13/20 08/20/20 Rx breast prosthesis left #1 ea 06/17/20 07/31/20 Rx miscellaneous medical supply 1 ea MISCELLANEOUS ONCE #1 ea 06/17/20 08/20/20 Rx omeprazole 20 mg PO QAM 08/07/20 08/20/20 History paroxetine HCl 10 mg PO QPM 08/07/20 08/20/20 History valsartan 40 mg PO QAM 08/07/20 08/20/20 History atorvastatin 10 mg tablet 10 mg PO QAM #90 tab 08/09/20 08/20/20 Rx prednisone 50 mg PO DIRECTED 08/20/20 08/20/20 History Patient History Medical History Anxiety Degenerative disc disease GERD (gastroesophageal reflux disease) Hearing deficit right ear deafness History of thyroid nodule Hx of breast cancer 2013 s/p left mastectomy, on Armidex Hyperlipidemia Hypertension PAD (peripheral artery disease) iliac and femoral artery stenosis Prolapsed bladder Sciatica Splenic lesion incidental finding on recent CT; pt refuses further work up Stenosis of femoral artery Weakness of right lower extremity Surgical History History of arthroscopy LEFT KNEE History of cataract surgery History of cholecystectomy History of cochlear implant Rt History of partial thyroidectomy History of total abdominal hysterectomy and bilateral salpingo-oophorectomy Hx of colonoscopy Hx of left mastectomy Hx of mastoidectomy RIGHT Family History Father Cardiovascular disease Sister Breast cancer Other No family history of adverse response to anesthesia Social History Smoking Status: Never smoker Second Hand Exposure: Yes (50 years ago); Hx Alcohol Use: Yes Alcohol type: wine Hx Substance Use: No Preferred Language: Wolof Communication Ability: Effective Recycling Assistant Required: No Beliefs That Will Affect Care: Sabianist Sabianist Beliefs: Jewish Current Living Situation: Spouse Feels Safe at Home: Yes Assistive Devices: Hearing Aid - Left and Oxygen - Continuous Review of Systems Review of Systems: A complete 10 point review of systems was reviewed with the patient with pertinent positives and negatives as per history of present illness. All else were negative. Physical Exam Physical Exam: VITAL SIGNS - Vital signs and nursing notes were reviewed. GENERAL - 89-year-old female appearing her stated age who is in no acute distress. Communicates well with provider and answers questions appropriately. HEAD - NC/AT. EYES - PERRL with EOMI bilaterally. Sclera anicteric. EARS - No deformities of external structures noted on gross examination bilaterally. NOSE - Midline and without cyanosis. No epistaxis or purulent drainage noted. MOUTH/OROPHARYNX - Without perioral cyanosis. Buccal mucosa pink and moist and without leukoplakia. NECK - Neck with FROM. Supple to palpation. LUNGS - Chest wall symmetric without accessory muscle use, intercostals retractions, or central cyanosis. Normal vesicular breath sounds CTA B/L. No wheezes, rales, or rhonchi appreciated. CARDIAC - RRR with S1/S2. No murmur, rubs, or gallops appreciated. No reproducible tenderness to palpation appreciated over the anterior chest wall. ABDOMEN - Abdominal contour obese without pulsations or visible masses. BS normoactive all four quadrants. No tenderness, palpable masses, hepatosplenomegaly, or ascites noted. EXTREMITIES - No clubbing or peripheral cyanosis. No pretibial edema present. Dopplerable pedal pulses present bilaterally. NEUROLOGIC - Cranial nerves II through XII grossly intact. Sensory intact to light touch throughout. PSYCH - A&Ox3 and cooperates fully with examiner. Pt is very pleasant and interacts well with examiner. Results & Data Results & Data ([facility]) Vital Signs (Past 12 Hours) Vital Signs Temp Pulse Pulse Resp BP Pulse Ox 08/20/20 19:55 81 15 108/61 95 08/20/20 19:40 74 15 111/61 94 08/20/20 19:30 36.7 C 76 16 103/55 L 96 08/20/20 19:20 52 L 15 114/80 96 08/20/20 19:10 36.3 C L 64 16 127/68 96 08/20/20 10:17 36.7 C 88 20 158/83 H 96 Coding Level of Care Code Critical Care 1st 30-74 mins Diagnoses Admitted to intensive care unit Z78.9 S/P vascular surgery Z98.890 Stenosis of right femoral artery I70.201 Claudication of right lower extremity I73.9 Diabetes mellitus E11.9 Benign essential hypertension I10 Anxiety F41.9 Hypercholesterolemia E78.00 Time Spent (min) 35
[2020-08-20] MEDS: ANASTROZOLE 1 MG TAB PO SCH (21:42)
[2020-08-20] MEDS: PARoxetine HCL 10 MG TAB PO SCH (21:43)
[2020-08-20] MEDS: ceFAZolin 1000MG 1,000 MG/7.5 ML SYR IV SCH (22:39)
[2020-08-20] MEDS ORDERED: ICU PROTOCOL FOR HYPERGLYCEMIA PRN (23:51)
[2020-08-20] MEDS ORDERED: ICU MODERATE HYPERGLYCEMIA PROTOCOL ONE (23:56)
[2020-08-21] MEDS ORDERED: PHARMACY GLYCEMIC MGMT CONSULT PRN (01:04)
[2020-08-21] MEDS ORDERED: CARBOHYDRATES FOR HYPOGLYCEMIA PO PRN (01:15)
[2020-08-21] MEDS ORDERED: DEXTROSE 50% 50 ML SYRINGE IV PRN (01:15)
[2020-08-21] MEDS ORDERED: GLUCAGON FOR INJ 1 MG VIAL SQ PRN (01:15)
[2020-08-21] MEDS ORDERED: GLUCOSE 10 TABS/TUBE PO PRN (01:15)
[2020-08-21] MEDS ORDERED: INSULIN GLARGINE SOLOSTAR 100 UNITS/ML 3 ML PEN SC ONE (01:15)
[2020-08-21] MEDS ORDERED: GLUCOSE 40% GEL 15 GM TUBE PO PRN (01:15)
[2020-08-21] MEDS: INSULIN ASPART 100 UNITS/ML 3 ML PEN SC SCH ×6 (01:16→20:24)
[2020-08-21] MEDS: SODIUM CHLORIDE 0.9% 1000ML 1,000 ML IV SCH ×2 (04:34→09:14)
[2020-08-21 04:46] LABS: Basophils # (auto) 0.01 K/uL (0-0.2); Basophils % (auto) 0.1 %; Hematocrit (blood only) 33.4 % (37-47); Hemoglobin 10.8 g/dL (12.0-16.0); Immature Granulocytes # (auto) 0.05 K/uL (0.00-0.02); Immature Granulocytes % (auto) 0.3 %; Lymphocytes # (auto) 2.52 K/uL (1.2-3.4); Lymphocytes % (auto) 15.8 %; Mean Corpuscular Hemoglobin 28.6 pg (25-34); Mean Corpuscular Hgb Conc 32.3 g/dL (32-36); Mean Corpuscular Volume 88.4 fL (80-100); Mean Platelet Volume 9.2 fL (7.4-10.4); Monocytes # (auto) 1.73 K/uL (0.11-0.59); Monocytes % (auto) 10.8 %; Neutrophils # (auto) 11.65 K/uL (1.4-6.5); Platelet Count 212 K/uL (130-400); RDW Coefficient of Variation 14.2 % (11.5-14.5); RDW Standard Deviation 45.9 fL (36.4-46.3); Red Blood Count 3.78 M/uL (4.2-5.4); White Blood Count 15.96 K/uL (4.8-10.8)
[2020-08-21 05:24] LABS: BUN Creatinine Ratio 24.2 (10-20); Calcium 7.8 mg/dl (8.5-10.1); Creatinine Clr Calc Pharmacy 42.2 ml/min; Est GFR (African American) 76.8; Est GFR (Non-African American) 66.3; Magnesium 1.9 mg/dl (1.8-2.4); Phosphorus 3.6 mg/dl (2.5-4.9); Potassium 3.7 mmol/L (3.5-5.1)
[2020-08-21] MEDS: dilTIAZem HCL 300 MG CAPCR PO SCH (08:09)
[2020-08-21] MEDS: VALSARTAN 80 MG TAB PO SCH (08:10)
[2020-08-21] MEDS: ENOXAPARIN INJ 30 MG/0.3 ML SYR SQ SCH ×2 (08:11→20:19)
[2020-08-21] MEDS: ATORVASTATIN 10 MG TAB PO SCH (08:12)
[2020-08-21] MEDS: CHOLECALCIFEROL 1,000 UNITS 25 MCG TAB PO SCH (08:12)
[2020-08-21] MEDS: PANTOprazole 40 MG TAB PO SCH (08:12)
[2020-08-21] MEDS: ceFAZolin 1000MG 1,000 MG/7.5 ML SYR IV SCH (08:13)
[2020-08-21] MEDS ORDERED: Nursing to Pharmacy Communication SCH ×2 (08:30→09:00)
--- NOTE | 2020-08-21 08:37 | Anesthesiology Consultation ---
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 Surgery Operation Date: 08/20/20 11:10 Proposed Procedures p Right Common Femoral Endarterectomy and Bilateral Iliac Artery Stenting, Possible Femoral to Femoral Bypass - Js Florence MD Height/Weight Height: 5 ft 1 in Weight: 63.1 kg Allergies Allergy/AdvReac Type Severity Reaction Status Date / Time Sulfa (Sulfonamide Allergy Intermediate Rash Verified 08/20/20 10:11 Antibiotics) shellfish derived Allergy Unknown Hives (COD) Verified 08/20/20 22:18 Medications Home Medications Medication Instructions Recorded Confirmed Last Taken miscellaneous medical supply #4 ea 06/08/19 07/31/20 Unknown cholecalciferol (vitamin D3) 50 2,000 unit PO QAM #90 cap 07/13/19 08/07/20 Unknown mcg (2,000 unit) capsule anastrozole 1 mg tablet 1 mg PO HS #90 tab 01/15/20 08/20/20 08/19/20 21:00 diltiazem HCl 300 mg 300 mg PO QAM #90 cap 04/23/20 08/20/20 08/20/20 06:30 capsule,extended release 24 hr lorazepam 0.5 mg tablet 0.5 mg PO BID PRN #60 tab 06/13/20 08/20/20 08/19/20 23:00 breast prosthesis left #1 ea 06/17/20 07/31/20 Unknown miscellaneous medical supply 1 ea MISCELLANEOUS ONCE #1 ea 06/17/20 08/20/20 Unknown omeprazole 20 mg PO QAM 08/07/20 08/20/20 08/20/20 06:30 paroxetine HCl 10 mg PO QPM 08/07/20 08/20/20 08/19/20 23:00 valsartan 40 mg PO QAM 08/07/20 08/20/20 08/19/20 12:00 atorvastatin 10 mg tablet 10 mg PO QAM #90 tab 08/09/20 08/20/20 08/19/20 12:00 prednisone 50 mg PO DIRECTED 08/20/20 08/20/20 08/20/20 06:00 Active Medications Generic Name Dose Route Start Last Admin Trade Name Freq PRN Reason Stop Dose Admin Anastrozole 1 mg 08/20/20 21:00 08/20/20 21:42 Anastrozole 1 Mg Tab PO 09/19/20 20:59 1 mg HS RUBEN Administration Atorvastatin Calcium 10 mg 08/21/20 09:00 08/21/20 08:12 Atorvastatin 10 Mg Tab PO 09/20/20 08:59 10 mg QAM RUBEN Administration Diltiazem HCl 300 mg 08/21/20 09:00 08/21/20 08:09 Diltiazem Hcl 300 Mg Capcr PO 09/20/20 08:59 Not Given QAM RUBEN Enoxaparin Sodium 30 mg 08/21/20 08:00 08/21/20 08:11 Enoxaparin Inj 30 Mg/0.3 Ml Syr SQ 09/20/20 07:59 30 mg Q12H RUBEN Administration Sodium Chloride 1,000 mls @ 125 mls/hr 08/20/20 21:45 08/21/20 04:34 Nss 1000ml IV 09/19/20 21:44 125 mls/hr .Q8H RUBEN Administration Oxycodone/Acetaminophen 1 - 2 tab 08/20/20 20:16 08/20/20 22:31 Oxycodone/Acetaminophen 5mg/325mg Tab PO 09/03/20 20:15 1 tab Q4H PRN Administration Moderate Pain Pantoprazole Sodium 40 mg 08/21/20 09:00 08/21/20 08:12 Pantoprazole 40 Mg Tab PO 09/20/20 08:59 40 mg QAM RUBEN Administration Paroxetine HCl 10 mg 08/20/20 21:00 08/20/20 21:43 Paroxetine Hcl 10 Mg Tab PO 09/19/20 20:59 10 mg QPM RUBEN Administration Valsartan 40 mg 08/21/20 09:00 08/21/20 08:10 Valsartan 80 Mg Tab PO 09/20/20 08:59 Not Given QAM RUBEN Vitamin D 2,000 units 08/21/20 09:00 08/21/20 08:12 Cholecalciferol 1,000 Units 25 Mcg Tab PO 09/20/20 08:59 2,000 units QAM RUBEN Administration NPO Date Last Intake of Fluids: 08/19/20 Time Last Intake of Fluids: 22:00 Last Intake of Fluids Comment: sips with meds this morning Date Last Intake of Solids: 08/19/20 Time Last Intake of Solids: 17:00 Past Medical History Medical History Anxiety Degenerative disc disease GERD (gastroesophageal reflux disease) Hearing deficit right ear deafness History of thyroid nodule Hx of breast cancer 2014 s/p left mastectomy, on Armidex Hyperlipidemia Hypertension PAD (peripheral artery disease) iliac and femoral artery stenosis Prolapsed bladder Sciatica Splenic lesion incidental finding on recent CT; pt refuses further work up Stenosis of femoral artery Weakness of right lower extremity Past Family History Family History Father Cardiovascular disease Sister Breast cancer Other No family history of adverse response to anesthesia Past Surgical History Surgical History History of arthroscopy LEFT KNEE History of cataract surgery History of cholecystectomy History of cochlear implant Rt History of partial thyroidectomy History of total abdominal hysterectomy and bilateral salpingo-oophorectomy Hx of colonoscopy Hx of left mastectomy Hx of mastoidectomy RIGHT Social History Smoking Status: Never smoker Do You Dip or Chew Tobacco: No Hx Alcohol Use: Yes Alcohol type: wine alcohol intake frequency: a few times a week Hx Substance Use: No substance use type: does not use Physical Exam Vital Signs Last Vital Signs Temp 36.5 C 08/21/20 08:21 Pulse 110 H 08/21/20 08:21 Resp 22 08/21/20 08:21 BP 121/64 08/21/20 08:21 Pulse Ox 89 L 08/21/20 08:21 Testing Laboratory Results 08/21/20 04:22 08/21/20 04:22 PT 11.1 Seconds (9.0-12.0) 08/14/20 14:45 INR 1.1 (0.9-1.1) 08/14/20 14:45 APTT 25.0 Seconds (21.0-31.0) 08/14/20 14:45 Blood Type A Negative 08/20/20 09:49 Antibody Screen NEGATIVE 08/20/20 09:49 08/21/20 08/21/20 08/21/20 07:31 04:23 00:48 POC Glucose 152 H 155 H 208 H 10/20/20 10/20/20 22:59 20:53 POC Glucose 207 H 240 H Laboratory Tests 09/03/17 06/24/20 08/14/20 08:31 08:17 14:45 WBC Hgb Hct Plt Count PT 11.1 INR 1.1 APTT 25.0 Sodium Potassium Chloride Carbon Dioxide BUN Creatinine Glucose Hemoglobin A1c 6.6 H TSH 3.540 08/21/20 08/21/20 04:22 04:22 WBC 15.96 H Hgb 10.8 L Hct 33.4 L Plt Count 212 PT INR APTT Sodium 141 Potassium 3.7 Chloride 111 H Carbon Dioxide 24 BUN 19 H Creatinine 0.80 Glucose 149 H Hemoglobin A1c TSH
--- NOTE | 2020-08-21 08:53 | Surgery Progress Note ---
Date of Service August 21, 2020 Assessment & Plan (1) S/P vascular surgery: Doing well post op Will transfer to floor Start PT/OT Possible d/c tomorrow Admission and Anticipated Discharge Date Admission Date: August 20, 2020 Subjective No complaints today. States feet feel better Physical Exam Cardiovascular: Did have occassional pause during the night. HR in 50's at rest Good dopplers both feet Skin: dressings intact Results & Data ([facility]) Vital Signs (Past 12 Hours) Vital Signs Temp Pulse Pulse Resp BP BP Pulse Ox 08/21/20 08:21 36.5 C 110 H 22 121/64 89 L 08/21/20 08:19 140 H 22 120/85 95 08/21/20 06:06 71 13 119/54 L 94 08/21/20 06:00 75 15 94 08/21/20 05:06 69 16 100/56 L 94 08/21/20 05:00 74 14 93 08/21/20 04:19 74 19 113/54 L 96 08/21/20 04:06 70 17 113/54 L 94 08/21/20 04:00 76 17 94 08/21/20 03:06 36.9 C 73 14 109/59 L 94 08/21/20 03:00 79 20 93 08/21/20 02:07 76 21 95 08/21/20 02:06 74 13 114/56 L 96 08/21/20 02:00 75 18 95 08/21/20 01:06 74 12 98/54 L 97 08/21/20 00:06 80 12 90/53 L 93 08/20/20 23:30 36.7 C 74 16 95 08/20/20 23:06 78 16 94/53 L 94 08/20/20 22:45 79 21 95 08/20/20 22:16 76 16 95 08/20/20 22:06 83 22 100/48 L 97 08/20/20 22:03 76 17 94 08/20/20 21:06 93 H 21 119/49 L 94 08/20/20 21:00 81 20 93
[2020-08-21] MEDS ORDERED: ICU PROTOCOL FOR HYPERGLYCEMIA SCH (09:00)
--- NOTE | 2020-08-21 11:00 | Pharmacy Report ---
Pharmacy Glycemic Short Note 2 - Date of Service August 21, 2020 - Glycemic Short BSG Results (Last 24 hours): 08/20/20 08/20/20 08/20/20 19:53 20:53 22:59 Glucose 269 H POC Glucose 240 H 207 H 08/21/20 08/21/20 08/21/20 00:48 04:22 04:23 Glucose 149 H POC Glucose 208 H 155 H 08/21/20 07:31 Glucose POC Glucose 152 H OUTPATIENT ANTIDIABETIC REGIMEN: * No meds for DM * A1c = 6.6% 06/24/20 ASSESSMENT: * Patient admitted for vascular surgery w/ Dr Florence * Most recent A1c consistent w/ DM however not yet requiring medications * Patient received stress dose hydrocortisone IV yesterday. This combined with surgical stressors likely led to post-op hyperglycemia. * No further steroid doses ordered * Lantus 18 units x 1 given last evening. Fasting BSG 152 this AM. Will utilize scaled low dose Lantus as she may ultimately not require basal insulin. * Novolog doses are based upon wt and "moderate" stress level - will continue PLAN FOR INPATIENT GLYCEMIC CONTROL: * Basal insulin * Lantus SQ BID per scale * 0 units if BSG less than 120 * 6 units if BSG 120-180 * 10 units if BSG greater than 180 * Bolus insulin * NovoLog per scale ACHS or Q6hrs while NPO * Goal Range: Low 110 mg/dL - High 140 mg/dL * Correction Factor: 35 mg/dL/unit * Nutritional / Prandial insulin per carb ratio of 1 unit per 12 grams CHO consumed PLAN FOR DISCHARGE: * patient's A1c at goal given age and comorbidities, no need to add antihyperglycemic meds at this time
[2020-08-21] MEDS: PARoxetine HCL 10 MG TAB PO SCH (20:18)
[2020-08-21] MEDS: ANASTROZOLE 1 MG TAB PO SCH (20:18)
[2020-08-21] MEDS: INSULIN GLARGINE SOLOSTAR 100 UNITS/ML 3 ML PEN SC SCH (20:24)
[2020-08-22 07:07] LABS: Appearance Urine Clear (Clear); Bacteria Urine Automated Negative (Negative); Bilirubin Urine Negative (Negative); Blood Urine 3+ (Negative); Color Urine Yellow; Epithelial Cell Urine Auto 0-5 /lpf (0-5); Glucose Urine UA Negative (Negative); Ketones Urine Negative (Negative); Leukocyte Esterase Urine Trace (Negative); Nitrite Urine Negative (Negative); Protein Urine Negative (Negative); RBC Urine Automated 0-4 /hpf (0-4); Specific Gravity Urine 1.013 (1.000-1.030); Urobilinogen Urine Negative (Negative); pH Urine 5.5 (4.5-7.5)
[2020-08-22] MEDS: CHOLECALCIFEROL 1,000 UNITS 25 MCG TAB PO SCH (08:22)
[2020-08-22] MEDS: dilTIAZem HCL 300 MG CAPCR PO SCH (08:22)
[2020-08-22] MEDS: VALSARTAN 80 MG TAB PO SCH (08:23)
[2020-08-22] MEDS: ATORVASTATIN 10 MG TAB PO SCH (08:24)
[2020-08-22] MEDS: PANTOprazole 40 MG TAB PO SCH (08:24)
[2020-08-22] MEDS: ENOXAPARIN INJ 30 MG/0.3 ML SYR SQ SCH ×2 (08:24→20:26)
[2020-08-22] MEDS: INSULIN GLARGINE SOLOSTAR 100 UNITS/ML 3 ML PEN SC SCH ×3 (09:07→21:35)
[2020-08-22] MEDS: INSULIN ASPART 100 UNITS/ML 3 ML PEN SC SCH ×4 (09:08→21:24)
--- NOTE | 2020-08-22 10:10 | Surgery Progress Note ---
Date of Service August 22, 2020 Assessment & Plan (1) S/P vascular surgery: Doing well post op Had urinary retention last pm but was able to void a large amount today. Will D/C tomorrow Admission and Anticipated Discharge Date Admission Date: August 20, 2020 Subjective No complaints today. States feet feel better. Sitting in chair at present. She claims she is ambulating Physical Exam Constitutional: WD/WN, vitals as above Cardiovascular: good distal doppler pulses Skin: + incision (Incisions dry and clean) Results & Data ([facility]) Vital Signs (Past 12 Hours) Vital Signs Temp Pulse Pulse Resp BP Pulse Ox 08/22/20 08:00 36.9 C 88 18 136/73 93 08/22/20 04:00 36.9 C 100 H 14 138/73 92 08/21/20 23:30 37.1 C 81 20 95/61 L 94
--- NOTE | 2020-08-22 14:17 | Pharmacy Report ---
Pharmacy Glycemic Short Note 2 - Date of Service August 22, 2020 - Glycemic Short BSG Results (Last 24 hours): 08/21/20 08/21/20 08/22/20 17:28 20:07 08:39 POC Glucose 136 H 150 H 128 H 08/22/20 12:17 POC Glucose 116 H OUTPATIENT ANTIDIABETIC REGIMEN: * No meds for DM * A1c = 6.6% 06/24/20 ASSESSMENT: 08/22: * Excellent glycemic control over the past 24 hours. Elyssa received 9 units of insulin yesterday. * Fasting BSG of 128 mg/dL is at goal. I will decrease the current Lantus scale so that patient receives a max of 6 units BID, instead of 10 units BID. * BSG trending down throughout the day today, therefore I will back off carb coverage. 08/21: * Patient admitted for vascular surgery w/ Dr Florence * Most recent A1c consistent w/ DM however not yet requiring medications * Patient received stress dose hydrocortisone IV yesterday. This combined with surgical stressors likely led to post-op hyperglycemia. * No further steroid doses ordered * Lantus 18 units x 1 given last evening. Fasting BSG 152 this AM. Will utilize scaled low dose Lantus as she may ultimately not require basal insulin. * Novolog doses are based upon wt and "moderate" stress level - will continue PLAN FOR INPATIENT GLYCEMIC CONTROL: * Basal insulin - decrease max dose on scale * Lantus SQ BID per scale * 0 units if BSG less than 140 * 6 units if BSG 140 or more * Bolus insulin - loosen carb ratio * NovoLog per scale ACHS or Q6hrs while NPO * Goal Range: Low 110 mg/dL - High 140 mg/dL * Correction Factor: 35 mg/dL/unit * Nutritional / Prandial insulin per carb ratio of 1 unit per 14 grams CHO consumed PLAN FOR DISCHARGE: * patient's A1c at goal given age and comorbidities, no need to add antihyperglycemic meds at this time
[2020-08-22] MEDS: ANASTROZOLE 1 MG TAB PO SCH (20:27)
[2020-08-22] MEDS: PARoxetine HCL 10 MG TAB PO SCH (20:27)
[2020-08-23] MEDS: INSULIN ASPART 100 UNITS/ML 3 ML PEN SC SCH (08:51)
[2020-08-23] MEDS: ENOXAPARIN INJ 30 MG/0.3 ML SYR SQ SCH (08:52)
[2020-08-23] MEDS: CHOLECALCIFEROL 1,000 UNITS 25 MCG TAB PO SCH (08:52)
[2020-08-23] MEDS: dilTIAZem HCL 300 MG CAPCR PO SCH (08:52)
[2020-08-23] MEDS: PANTOprazole 40 MG TAB PO SCH (08:52)
[2020-08-23] MEDS: ATORVASTATIN 10 MG TAB PO SCH (08:52)
[2020-08-23] MEDS: INSULIN GLARGINE SOLOSTAR 100 UNITS/ML 3 ML PEN SC SCH (08:53)
[2020-08-23] MEDS: VALSARTAN 80 MG TAB PO SCH (08:53)
--- NOTE | 2020-08-23 11:49 | Surgery Progress Note ---
Date of Service August 23, 2020 Assessment & Plan (1) S/P vascular surgery: Doing well post op day #3. Pt discussed with Dr Florence, recommends d/c home today. Office will call pt to schedule follow up in 2 weeks for staple removal. Admission and Anticipated Discharge Date Admission Date: August 20, 2020 Subjective 89 yo f POD #3 after L to R fem fem BPG and BL femoral endarterectomies, seen in f/u today. Pt states feeling well, would like to go home. No BM since surgery, but is passing flatus and has no abd pain. Minimal discomfort in incisions. Denies other complaints at this time. Review of Systems Review of Systems: All systems reviewed & are unremarkable except as noted in HPI & below Physical Exam Constitutional: WD/WN, vitals as above Cardiovascular: Vessels: posterior tibial pulses present (with doppler) and dorsalis pedis pulses present (with doppler) Extremities: normal capillary refill Skin: + incision (Incisions dry and clean) Results & Data ([facility]) Vital Signs (Past 12 Hours) Vital Signs Temp Pulse Pulse Resp BP Pulse Ox 08/23/20 10:52 37.0 C 88 75 18 139/65 90 08/23/20 07:34 37.0 C 75 18 139/65 90 08/22/20 23:46 37.1 C 88 14 124/76 93
--- NOTE | 2020-08-23 12:18 | Discharge Summary ---
Date of Service August 23, 2020 Admission HPI Per Admitting Provider * Final Report * [facility] OUTPATIENT NOTE Name: JOIE REA Patient Number: [id number] : [id number] Date of Service: 08/05/2020 Chief Complaint: _Consultation for right leg PAD HPI: _Mrs. Rea is an elderly female who presents to Dr. Florence's vascular surgery clinic today in consultation for right buttock hip and thigh tiredness/achiness which occurs with ambulation. Patient states that she could possibly walk 50 yards on a flat surface, significantly less if going up and elevation or going up stairs. She states that she first noticed symptoms about 6 months ago, but that they became significantly worse about 2 months ago. At that point she sought an appointment with her primary care provider who sent her for a CT scan which demonstrated severe atherosclerotic disease in the aortoiliac and femoral arteries. Patient denies any history of peripheral arterial disease. She denies any rest pain, nonhealing wounds or ulcers, discoloration of the feet or toes. She does admit some chronic numbness in the feet from neuropathy but this is been present for many years. She denies headache, fever, chills, chest pain, shortness of breath, abdominal pain, nausea, vomiting, other complaints. No history of DVT/PE, known coronary artery disease, heart arrhythmia, myocardial infarction. Does not see a block hacker. Current Home Meds: (Last Updated 08/05 16:14) LORazepam (LORazepam 0.5 mg oral tablet) 0.5 mg PO bid PRN: as needed for anxiety PARoxetine (PARoxetine 20 mg oral tablet) 10 mg PO Daily acetaminophen (acetaminophen 650 mg oral tablet, extended release) 1,300 mg PO q12h PRN: pain - mild anastrozole (anastrozole 1 mg oral tablet) 1 mg PO qhs atorvastatin (atorvastatin 10 mg oral tablet) 10 mg PO Daily cholecalciferol (cholecalciferol 2000 intl units (50 mcg) oral capsule) 50 mcg PO Daily dilTIAZem (dilTIAZem 300 mg/24 hours oral capsule, extended release) 300 mg PO Daily omeprazole (omeprazole 20 mg oral delayed release capsule) 20 mg PO Daily predniSONE (predniSONE 50 mg oral tablet) 1 tab PO q8h Start 12 hr before procedure/study valsartan (valsartan 40 mg oral tablet) 40 mg PO Daily Allergies and Sensitivities: Allergy Not found in Search(Hives) sulfa drugs(Hives) shellfish(Rash) Past Medical History: Problems: Atherosclerosis Hx of breast cancer Female bladder prolapse Hypertension Hyperlipidemia Hearing deficit GERD (gastroesophageal reflux disease) Anxiety Surgical history: Positive for thyroid surgery in 1977, left mastectomy 2013, hernia repair 1977, breast biopsy 2013, hysterectomy and bilateral salpingo- oophorectomy, tonsillectomy 1942, cholecystectomy 1987, cataract surgery, mastoidectomy, colonoscopy family history:Positive for coronary disease in her father, breast cancer in her sister. Social history: Occasional wine drinker, never smoker, negative illicit drug use. She lives with her spouse Physical Exam Constitutional: In general patient is a healthy for age appearing well-nourished well-developed elderly female no distress. She ambulates without assistance. She is alert and oriented without any focal deficits. Her head is normocephalic and atraumatic. Eyes are EOMI. ENMT exam demonstrates straits some mild hearing loss. Neck is supple nontender with midline trachea. Heart demonstrates a regular rate and rhythm with occasional PVCs. Lungs are clear bilaterally with good aeration. Abdomen is soft and nontender with normoactive bowel sounds in all 4 quadrants without guarding or rebound. No pulsatile tonya s appreciable. Femoral pulses are +1 in the left, nonpalpable on the right. Left DP pulse is +2, left PT pulses +1. Right foot distal pulses are nonpalpable. Brisk capillary refill on the left, capillary refill at 5 seconds on the right. Right toes are cooler than the left. Neurologically she is grossly intact cranial nerves are grossly intact sensation ASSESSMENT: _ PLAN: _ 1 ) _aortoiliac occlusive disease, with right thigh claudication Patient does appear to have significant claudication in the right hip and thigh, consistent with her CTA findings of right common iliac artery severe stenosis and common femoral artery stenosis. It is likely that the stenosis/claudication in her right hip and buttock keeps her from ambulating far enough to claudicate in her left thigh and buttock. She does not have rest pain, discoloration, or ulcerations of her feet or toes. After discussion with Dr. Florence who reviewed the patient's CTA at length, he recommends that patient consider undergoing a right common femoral artery endarterectomy, as well as bilateral common iliac artery stenting in the operating room. The procedure was discussed at length with the patient, her was present as well. She elects to proceed. This will occur in the next few weeks at the patient's convenience. She is advised to call with any other questions. Admission Exam Per Admitting Provider Physical Exam Constitutional: In general patient is a healthy for age appearing well-nourished well-developed elderly female no distress. She ambulates without assistance. She is alert and oriented without any focal deficits. Her head is normocephalic and atraumatic. Eyes are EOMI. ENMT exam demonstrates straits some mild hearing loss. Neck is supple nontender with midline trachea. Heart demonstrates a regular rate and rhythm with occasional PVCs. Lungs are clear bilaterally with good aeration. Abdomen is soft and nontender with normoactive bowel sounds in all 4 quadrants without guarding or rebound. No pulsatile masses appreciable. Femoral pulses are +1 in the left, nonpalpable on the right . Left DP pulse is +2, left PT pulses +1. Right foot distal pulses are nonpalpable. Brisk capillary refill on the left, capillary refill at 5 seconds on the right. Right toes are cooler than the left. Neurologically she is grossly intact cranial nerves are grossly intact sensation Principal Diagnosis 1. s/p L iliac stenting, BL common femoral endarterectomies, L to R femoral to femoral bypass 2. 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 Discharge Exam Constitutional WD/WN, vitals as above Cardiovascular Vessels: posterior tibial pulses present (with doppler) and dorsalis pedis pulses present (with doppler) Extremities: normal capillary refill Skin + incision (Incisions dry and clean) Discharge Data Allergies Allergy/AdvReac Type Severity Reaction Status Date / Time Sulfa (Sulfonamide Allergy Intermediate Rash Verified 08/20/20 10:11 Antibiotics) shellfish derived Allergy Unknown Hives (COD) Verified 08/20/20 22:18 Consultations 08/20/20 20:16 Consult Cloth Checker Routine 08/21/20 08:00 Consult Case Management - Discharge Planning Routine Procedures Performed Operation Date: 08/20/20 11:10 Actual Procedures p Bilateral Cannulation of Aorta, Aortagram, Stenting of Left Common Iliac Artery and Distal Aorta, Bilateral Common Femoral Artery Endarterectomy with Bovine Patch, Cross Femoral Bypass Left to Right(Right) - Js Florence MD Ordered Studies 08/20/20 12:59 EV angio LE BI Routine Hospital Course (1) S/P vascular surgery: Doing well post op day #3. Pt discussed with Dr Florence, recommends d/c home today. Office will call pt to schedule follow up in 2 weeks for staple removal. Total Time Total Time Spent Total Time Spent (In Minutes): 0 Discharge Plan Discharge Items Patient Disposition: Home - Self-Care Reason For Visit: Iliac and Femoral Artery Stenosis Discharge Diagnosis: 1. s/p Left iliac stenting, Bilateral common femoral endarterectomies, and Left to Right femoral to femoral artery bypass graft 2. Severe iliac and femoral artery stenosis with claudication Condition on Discharge: Good Activity: Per Instructions section Non-emergency contact: Primary Care Provider Call non-emergency contact if: you have any medication questions, your pain is not controlled, your pain is worsening, your pain is concerning for you, you have a fever, your wound has increased redness, your wound has increased drainage and your wound pain has increased Follow-up/Referrals: Jasvir Dhaliwal MD [Primary Care Provider] - 08/28/20 1:30 pm (follow up A ppointment with Dr. Dhaliwal) Ariela Taylor PA-C [Physician Apartment House Manager] - 09/05/20 12:45 pm (Schedule follow up visit for staple removal in 2 weeks. Appointment scheduled for ) Diet: Heart Healthy Addtl Attending Provider Instructions: 1. May shower, no bathing or soaking in water. 2. May cover wounds with dry dressing if drainage noted, otherwise no dressing required. Keep wounds clean and dry if possible. ACTIVITY RECOMMENDATIONS: See Above SPECIAL CARE INSTRUCTIONS: Call your doctor if: * Temperature above 101 degrees * Pain not relieved by pain medicine ordered * There is increased drainage or redness from any incision * You have any unanswered questions or concerns. Pending Studies at Discharge: No Stand-Alone Forms: My Socialite, Smoking Cessation Medications and DC Order Prescriptions: New oxycodone-acetaminophen [Percocet] 5-325 mg Tablet 1 - 2 tab PO Q4H PRN (Reason: pain) Qty: 30 RF: 0 docusate sodium [Colace] 100 mg capsule 100 mg PO BID Qty: 60 RF: 0 Continued (DME) Prosthetic Mastectomy Bra Misc See Dose Instructions .ROUTE .MEDSUPPLY Qty: 4 RF: 0 anastrozole 1 mg tablet 1 mg PO HS Qty: 90 RF: 3 diltiazem HCl 300 mg capsule,extended release 24hr 300 mg PO QAM Qty: 90 RF: 3 lorazepam 0.5 mg tablet 0.5 mg PO BID PRN (Reason: Anxiety) Qty: 60 RF: 2 miscellaneous medical supply Misc 1 ea miscellaneous ONCE Qty: 1 RF: 0 (DME) breast prosthesis left See Rx Instructions .Route .MEDSUPPLY Qty: 1 RF: 0 atorvastatin 10 mg tablet 10 mg PO QAM Qty: 90 RF: 3 cholecalciferol (vitamin D3) [Vitamin D3] 2,000 unit capsule 2,000 unit PO QAM Qty: 90 RF: 3 paroxetine HCl 20 mg tablet 10 mg PO QPM RF: 0 omeprazole 20 mg capsule,delayed release(DR/EC) 20 mg PO QAM RF: 0 valsartan 40 mg tablet 40 mg PO QAM RF: 0 prednisone 50 mg Tablet 50 mg PO DIRECTED RF: 0 Discharge Orders: Discharge Order (Routine); Ordered 08/23/20 Ordered By: Ariela Taylor Admission Data Admit Date/Time: 08/20/20 12:09 Attending Provider: Js Florence Admit Provider: Js Florence Primary Care Provider: Jasvir Dhaliwal Other Providers: Alex Zhang ; Iker Moreno ; Derrek Ricks ; Yunior Daniels ; Noe Escobar ; Bry Aparicio ; Jose Luis Hernandez Other Interventions: Discharge Summary Assessment (RN) Last Done: 08/23/20 10:52
--- NOTE | 2020-09-05 14:47 | Operative Report ---
Post Operative Report Pre & Post Diagnosis Operation Date: 08/20/20 11:10 Pre-Op Diagnosis: Iliac and Femoral Artery Stenosis Post-Op Diagnosis: Iliac and Femoral Artery Stenosis I identified the patient and participated in the time-out.: Yes Procedure Operation Date: 08/20/20 11:10 Actual Procedures p Bilateral Cannulation of Aorta, Aortagram, Stenting of Left Common Iliac Artery and Distal Aorta, Bilateral Common Femoral Artery Endarterectomy with Bovine Patch, Cross Femoral Bypass Left to Right(Right) - Js Florence MD Surgeon Js Florence MD Apartment Locator Geronimo,PAC Estimated Blood Loss 300 Findings Consistent with Post-Op Diagnosis Specimens None Anesthesia Type General Complications none Disposition Accompanied Patient To Recovery: No Disposition: Recovery Room Indications This is an 89-year-old female with severe claudication of the lower extremities worse on the right than the left. She has stenosis seen of the common iliac on the left and occlusion of the right common iliac artery. We recommended attempted treatment endovascularly approach the right common iliac. This would not be done then a femorofemoral bypass was recommended. I have discussed the risks options and benefits of the procedure with the patient. The patient understands the risks options and benefits and agrees to the procedure. Description of Procedure Patient was seen operating placed 9 position. After general esthesia was accomplished the groins were prepped and draped in a sterile manner. Timeout was performed the patient was identified. Incision was made in the right groin. This was carried down to where the common femoral artery was identified. It was heavily calcified. We then punctured the right common femoral artery. We attempted to pass a wire through sheath was inserted through the occluded common iliac artery multiple wires and catheters were used. We could not traverse the lesion. We decided that tender we should look at the left iliac for inflow stenoses and treat this if needed followed by femorofemoral bypass. Incision was then made in the left groin. This again carried down to where the femoral artery was identified. Is isolated from inguinal ligament down to the bifurcation. As on the right this was heavily calcified. We then punctured the artery on the left side. An 035 wire was inserted of 8 [place] sheath inserted over the wire. The 035 Glidewire was inserted and passed up through the aorta. There was significant narrowing seen at the common iliac origin and distal aorta. There is also separate narrowing seen in the external iliac artery in the midportion. We used the 8 x 59 VBX stent to stent the distal aorta and left common iliac artery origins. This was then dilated to a 12 x 4 balloon distally and a 14 x 2 balloon proximally. A 14 x 4 protg stent was then used in the external iliac artery and deployed without difficulty. Completion angios showed a widely patent external and common iliac artery in the left side. Patient was heparinized at that time. After adequate heparinization was accomplished the common femoral artery was clamped approximately superficial profundal femoral artery was clamped distally. Longitudinal arteriotomy was then performed. The found common femoral artery had a large amount of calcified plaque present. We decided to endarterectomized this and patch it with a bovine patch. The artery was started appropriate plane. Large amount of calcified plaque was removed. Once this was done the origins of the superficial femoral profundofemoral arteries were seen and were found to be patent. Good inflow was noted. We then closed the arteriotomy using a bovine patch and 6-0 Prolene suture. Once this was completed we went to the right side again the same was done. Once the femoral artery was open there was found to be heavily calcified. There was significant narrowing. We then endarterectomized the right common femoral artery again closed with a bovine patch. Clamps removed good retrograde flow was seen. We then brought an 8 mm x 40 mm ringed propatent graft to the operative field. A suprapubic tunnel was made. The graft was passed through the tunnel. The left common femoral artery is occluded proximal distally. A longitudinal arteriotomy was made in the bovine patch. The [place] graft was beveled and at the site anastomosis was accomplished with a 5-0 Prolene suture. Once this was completed the clamp was placed on the graft clamps removed and femoral arteries. Flow was noted in the left leg. Good Doppler signals were heard beyond the anastomosis. Right common femoral was then clamped proximal distally. Again longitudinally arteriotomy was made in the bovine patch. The [place]ter graft was pulled the appropriate length trimmed the beveled appropriate fashion and an end-to-side anastomosis was accomplishe using a 5-0 Prolene suture. Once this was completed backbleeding for bleeding was allowed to occur to find few sutures were placed and securely tied. Clamps were then removed. excellent flow was seen. Good Doppler signals were heard distally. Once adequate hemostasis was noted wounds were closed in usual fashion using running 2-0 Vicryl suture for the femoral sheath, running 3-0 Vicryl suture for the subcutaneous tissues and jose juan for the skin. Sterile dressings were applied to the wound.The patient left the operation room in satisfactory condition and tolerated the procedure well. All needle and sponge counts were correct at the end of the procedure. Ariela Taylor Pac assisted due to lack of resident availability and was necessary for positioning, draping, retraction, wound closure deep layers, subcutaneous tissue, and skin closure and was necessary for assisting with the case. I attest to the content of the Intraoperative Record and any orders documented therein. Any exceptions are noted below.
== END 2020-08-23 12:24 | disposition home or self-care (01) | DRG 254 ==
LOC: ASU 09:23 → 1E 12:09 → 3N 08-21 09:52